=== PATIENT | male | born 1955 | race Caucasian/White ===

== ENCOUNTER 2018-12-05 11:32 | Day surgery (SDC) | payer OTHER ==
[~2018-12-05] VITALS: Ht 182.9 cm; Wt 104.7 kg
[2018-12-05] MEDS ORDERED: NO MEDS (12:50)
[2018-12-05 12:51] VITALS: BP 144/92; PULSE 58; RESP 18
--- NOTE | 2018-12-05 13:05 | PREAC ---
Date/Time of Note Date/Time of Note DATE: 12/05/18 TIME: 13:04 Anesthesia Eval and Record Evaluation Time Pre-Procedure Interview DATE: 12/05/18 TIME: 13:04 Age 63 Sex male NPO: 8 hrs Preoperative diagnosis personal history of colon cancer, screening Planned procedure colonoscopy Past Medical History Past Medical History: Includes Cardio: HTN Renal: Other (history of renal cell cancer) Surgery & Anesthesia Issues No known issue Meds Anticoagulation: No Beta Jenniffer within 24 hr: No Reason Beta Jenniffer not given: Pt. not on B-Jenniffer Reported Medications [No Meds] No Conflict Check 12/05/18 Meds reviewed: Yes Allergies Coded Allergies: No Known Allergy (Unverified , 12/05/18) Allergies Reviewed: Yes Labs/Studies Labs Reviewed: Reviewed by anesthesiologist test: N/A Pre-procedure Exam Last vitals Vital Signs Date Temp Pulse Resp B/P (MAP) Pulse Ox O2 O2 Flow FiO2 Time Delivery Rate 12/05/18 98.0 58 18 144/92 96 Room Air 12:51 (109) Airway: Adequate mouth opening, Adequate thyromental dist Mallampati: Mallampati II Teeth: Normal Lung: Normal Heart: Normal ASA Physical Status ASA physical status: 2 Emergency: None Planned Anesthetic General/MAC: Mask Planned Pain Management Parenteral pain med Pre-operative Attestations Prior to commencing anesthesia and surgery, the patient was re-evaluated, there was verification of: *The patient's identity *The results of appropriate recent lab work and preoperative vital signs *The above evaluation not changing prior to induction *Anesthetic plan, risk benefits, alternative and complications discussed with patient/family; questions answered; patient/family understands, accepts and wishes to proceed. RUBEN DASH MD Dec 05, 2018 13:05
[2018-12-05] MEDS ORDERED: LIDOCAINE 2% (SDV) 5 ML INJ ONE (13:07)
[2018-12-05] MEDS ORDERED: PROPOFOL 40 ML ONE (13:07)
[2018-12-05] MEDS ORDERED: HYDROmorphONE 1 MG/5 ML IV SYRINGE IV PRN (13:30)
[2018-12-05] MEDS ORDERED: ONDANSETRON 4 MG INJ IV PRN (13:30)
--- NOTE | 2018-12-05 13:51 | PAC ---
Date/Time of Note Date/Time of Note DATE: 12/05/18 TIME: 13:51 Post-Anesthesia Notes Post-Anesthesia Note Last documented vital signs Vital Signs Date Temp Pulse Resp B/P (MAP) Pulse Ox O2 O2 Flow FiO2 Time Delivery Rate 12/05/18 98.0 58 18 144/92 96 Room Air 12:51 (109) Activity: WNL Respiratory function: WNL Cardiovascular function: WNL Mental status: Baseline Pain reasonably controlled: Yes Hydration appropriate: Yes Nausea/Vomiting absent: Yes Comments BP: 139/88 HR: 66 RR: 15 T: 98 SaO2: 95% RUBEN JOHNSON MD Dec 05, 2018 13:51
[2018-12-05] MEDS ORDERED: PROPOFOL 20 ML ONE (13:56)
[2018-12-05 14:09] VITALS: BP 157/88; PULSE 58; RESP 16
== END 2018-12-05 15:15 | disposition home or self-care (01) ==
LOC: GIL 11:32
PROVIDERS: ATTEND Internal Medicine Gastroenterology
DX: Z12.11 Encounter for screening for malignant neoplasm of colon (principal); D12.8 Benign neoplasm of rectum; K64.8 Other hemorrhoids; I10 Essential (primary) hypertension
CPT/HCPCS: 45380; 88305; Z7610